=== PATIENT | female | born 1995 | race Caucasian/White ===

== ENCOUNTER 2019-01-05 16:50 | Emergency (ER) | payer OTHER ==
[~2019-01-05] VITALS: Ht 165.1 cm; Wt 100.0 kg
[2019-01-05 16:52] VITALS: Ht 165.1 cm; Wt 100.0 kg
[2019-01-05 17:19] LABS: BASOPHILS 0.7 % (0-2); EOSINOPHILS 4.9 % (0-7); HEMATOCRIT 32.9 % (36.0-48.0); HEMOGLOBIN 10.3 g/dL (12-16); IMMATURE GRANULOCYTES 0.1 % (0-5); LYMPHOCYTES 29.3 % (15-50); MCH 23.4 pg (26.0-34.0); MCHC 31.3 g/dL (31.0-37.0); MCV 74.6 fL (80.0-100.0); MONOCYTES 8.4 % (2-11); NEUTROPHILS 56.6 % (40-80); PLATELET COUNT 241 10x3/uL (130-400); RBC 4.41 10x6/uL (4.00-5.40); RDW 15.4 % (11.5-14.5); WBC 7.5 10x3/uL (4.8-10.8)
[2019-01-05 17:35] LABS: INR 1.02 (0.85-1.17); PROTIME 12.9 SECONDS (11.6-15.0)
[2019-01-05 17:36] LABS: D-DIMER-QUANTITATIVE < 0.27 ug/mLFEU (0.20-0.54)
[2019-01-05 17:41] LABS: ALBUMIN 3.3 g/dL (3.4-5.0); ALKALINE PHOSPHATASE 121 U/L (46-116); ALT (SGPT) 24 U/L (10-68); BILIRUBIN - TOTAL 0.22 mg/dL (0.2-1.3); CALC OSMOLALITY 281 mosm/kg (275-300); CALCIUM 8.3 mg/dL (8.5-10.1); CHLORIDE - SERUM 106 mmol/L (98-107); CREATININE - SERUM 0.8 mg/dL (0.6-1.3); GLUCOSE 93 mg/dL (74-106); PROTEIN - SERUM 7.1 g/dL (6.4-8.2); SODIUM 142 mmol/L (136-145); UREA NITROGEN 9 mg/dL (7-18); eGFR NON AFRICAN AMERICAN > 90 mL/min (90-120)
[2019-01-05] MEDS ORDERED: XARELTO20 MG PO (19:58)
[2019-01-05] MEDS ORDERED: ZPAK PO (19:58)
[2019-01-05 20:47] VITALS: BP 115/60
== END 2019-01-05 20:47 | disposition home or self-care (01) ==
LOC: D.ER 16:50
PROVIDERS: Family Medicine
DX: J18.9 Pneumonia, unspecified organism (principal); Z76.0 Encounter for issue of repeat prescription; F43.10 Post-traumatic stress disorder, unspecified; X58.XXXA Exposure to other specified factors, initial encounter; Y93.89 Activity, other specified; Y92.89 Other specified places as the place of occurrence of the external cause

== ENCOUNTER 2019-01-13 11:14 | Emergency (ER) | payer OTHER ==
[~2019-01-13] VITALS: Ht 165.1 cm; Wt 102.3 kg
[~2019-01-13 11:14] MED LIST: XARELTO20 MG PO; ZPAK PO
[2019-01-13 11:29] VITALS: Ht 165.1 cm; Wt 102.3 kg
[2019-01-13] MEDS ORDERED: ATARAX 25 MG TA25 MG PO (11:30)
[2019-01-13] MEDS ORDERED: NEURONTIN600 MG PO (11:30)
[2019-01-13] MEDS ORDERED: SINEQUAN25 MG PO (11:31)
[2019-01-13 12:22] LABS: BASOPHILS 0.3 % (0-2); EOSINOPHILS 4.2 % (0-7); HEMATOCRIT 35.6 % (36.0-48.0); HEMOGLOBIN 11.1 g/dL (12-16); IMMATURE GRANULOCYTES 0.2 % (0-5); LYMPHOCYTES 32.9 % (15-50); MCH 23.1 pg (26.0-34.0); MCHC 31.2 g/dL (31.0-37.0); MCV 74.2 fL (80.0-100.0); MEAN PLATELET VOLUME 10.3 fL (7.4-10.4); MONOCYTES 7.4 % (2-11); PLATELET COUNT 274 10x3/uL (130-400); RDW 15.9 % (11.5-14.5); WBC 6.4 10x3/uL (4.8-10.8)
[2019-01-13 12:34] LABS: ALBUMIN 3.6 g/dL (3.4-5.0); ALKALINE PHOSPHATASE 127 U/L (46-116); ALT (SGPT) 28 U/L (10-68); BILIRUBIN - TOTAL 0.24 mg/dL (0.2-1.3); CALC OSMOLALITY 278 mosm/kg (275-300); CALCIUM 8.7 mg/dL (8.5-10.1); CARBON DIOXIDE 24.6 mmol/L (21.0-32.0); CHLORIDE - SERUM 105 mmol/L (98-107); CREATININE - SERUM 0.8 mg/dL (0.6-1.3); GLUCOSE 93 mg/dL (74-106); POTASSIUM - SERUM 3.6 mmol/L (3.5-5.1); PROTEIN - SERUM 7.6 g/dL (6.4-8.2); SODIUM 141 mmol/L (136-145); UREA NITROGEN 8 mg/dL (7-18); eGFR NON AFRICAN AMERICAN > 90 mL/min (90-120)
[2019-01-13 12:42] LABS: PRO BNP 57 pg/mL (0-125)
[2019-01-13 13:48] LABS: CREATINE KINASE 141 UL (21-215); TROPONIN-I < 0.017 ng/mL (0.000-0.060)
[2019-01-13] MEDS ORDERED: ALBUTEROL SULF8.5 GM INH (13:54)
[2019-01-13 14:16] VITALS: BP 124/89
== END 2019-01-13 14:16 | disposition home or self-care (01) ==
LOC: D.ER 11:14
PROVIDERS: Family Medicine
DX: R06.02 Shortness of breath (principal); R07.81 Pleurodynia